=== PATIENT | female | born 1945 | race African-American/Black ===

== ENCOUNTER → 2025-01-14 | Outpatient (CLI) | payer MEDICARE, OTHER ==
[~2025-01-14] MED LIST: AMLO2.5T45 PO; AMLO5TAB88 PO; APIX5TAB PO; CARV6.2548 PO; DIPH25CA83 PO; FURO20TA4 PO; PANT40TA51 PO
== END | disposition home or self-care (01) ==
LOC: CARD 12:04
PROVIDERS: ATTEND Internal Medicine
DX: I08.1 Rheumatic disorders of both mitral and tricuspid valves (principal); I27.20 Pulmonary hypertension, unspecified; I48.0 Paroxysmal atrial fibrillation; I50.9 Heart failure, unspecified; R06.02 Shortness of breath; R60.9 Edema, unspecified
CPT/HCPCS: 93306